=== PATIENT | female | born 1945 | race Caucasian/White ===

== ENCOUNTER → 2020-04-26 | Emergency (ER) | payer OTHER ==
[~2020-04-26] VITALS: Ht 162.6 cm; Wt 74.8 kg
[~2020-04-26] MED LIST: AMAN100C13 PO; BENA20TA14 PO; DIA5T PO; LEVO500T21 PO; MECL1TAB42 PO; MORPHINE SULF INJ 2 MG/ML SYRINGE 1ML IV ONE; ONDANSETRON HCL 4 MG/2 ML VIAL IV ONE; OXY20CRT PO; SODIUM CHLORIDE 0.9% 1,000 ML IV ONE; [UNRECOGNIZED DRUG - CODE] TD; methylPREDNISolone SOD SUCC 125 MG/2 ML VL IV ONE
[2020-04-26 13:09] LABS: Basophils # (auto) 0 10 ^3/uL (0-0.2); Basophils % (auto) 0.2 % (0.0-2.0); Eosinophils # (auto) 0 10 ^3/uL (0-0.8); Eosinophils % (auto) 0.1 % (0.0-7.0); Hematocrit 52.7 % (36.0-46.0); Hemoglobin 17.5 g/dL (12.2-16.2); Mean Corpuscular Hgb Conc. 33.2 g/dL (32.0-36.0); Mean Corpuscular Volume 96.4 fL (80.0-100.0); Monocytes # (auto) 1.4 10 ^3/uL (0-1.3); Monocytes % (auto) 9.7 % (0.0-12.0); Neutrophils # (auto) 12.3 10 ^3/uL (1.6-8.6); Nucleated Red Blood Cells % 0.2 %; Platelet Count (auto) 260 10^3/uL (140-450); Red Blood Cells 5.46 10^6/uL (4.0-5.20); Red Cell Distribution Width 14.6 % (11.8-14.3); White Blood Cell 14.8 10^3/uL (4.4-10.8)
[2020-04-26 13:25] LABS: Albumin 2.7 g/dL (3.4-5.0); Anion Gap 5 (5-15); Blood Urea Nitrogen 36 mg/dL (7-18); Calcium 8.4 mg/dL (8.5-10.1); Carbon Dioxide 29 mmol/L (21-32); Chloride 104 mmol/L (98-107); Glucose 130 mg/dL (74-106); Potassium 3.8 mmol/L (3.5-5.1); Sodium 138 mmol/L (136-145)
[2020-04-26 13:30] LABS: Alanine Aminotransferase 67 U/L (13-56); Alkaline Phosphatase 133 U/L (45-117); Aspartate Aminotransferase 140 U/L (15-37); BUN/Creatinine Ratio 34.6; Bilirubin, Total 1.6 mg/dL (0.2-1.0); GFR African American 66 mL/min; GFR Non-African American 55 mL/min; Total Protein 7.1 g/dL (6.4-8.2)
[2020-04-26 18:42] VITALS: BP 141/64
== END | disposition home or self-care (01) ==
LOC: EDUNIT# 12:10 → ER 12:18 → EDBD 12:18
DX: G35 Multiple sclerosis (principal); E44.0 Moderate protein-calorie malnutrition; I10 Essential (primary) hypertension; Z90.49 Acquired absence of other specified parts of digestive tract; Z90.710 Acquired absence of both cervix and uterus; Z68.28 Body mass index [BMI] 28.0-28.9, adult; Z88.0 Allergy status to penicillin; Z88.1 Allergy status to other antibiotic agents; Z88.2 Allergy status to sulfonamides; Z88.8 Allergy status to other drugs, medicaments and biological substances
CPT/HCPCS: 36415; 70450; 71045; 80053; 83880; 84484; 85025; 96374; 96375; 99285; J2270; J2405; J2930; J7030